=== PATIENT | female | born 1975 | race Caucasian/White ===

== ENCOUNTER 2022-12-31 07:00 | Outpatient (CLI) | payer OTHER, SELFPAY ==
--- NOTE | 2022-12-31 07:15 | MR_ITS ---
[address] [address] Phone:?[phone] Fax:?[phone] Referring Physician Information: Gemini Camp [address] [facility] [address] Phone:?[phone] Fax:?[phone] Patient:?Maida Ngo D.O.B:?1975 Sex:?Female Phone:?[phone] [facility] MRN:?[id number] Exam Date:?12/31/2022 ? EXAM: MRI EXAMINATION OF THE LEFT HIP CLINICAL INFORMATION: Female, 47 years old, with left hip pain. INDICATION: Evaluate for tensor fascia bharath injury. PRIOR SURGERY: None reported. PLAIN FILMS: None available. COMPARISONS: No prior MRIs available. TECHNICAL INFORMATION: Using a 1.5T MR scanner and a localizing surface coil: coronals: PD, T2 sagittals: PD, T2 oblique axials: PD straight axials: PDFS coronals: T1, STIR of pelvis and hips SEDATION: None CONTRAST: None FINDINGS: Hip joint: Physiologic hip effusion. No chondromalacia or focal full-thickness defect of the femoral head or acetabular articular cartilage. No intra-articular bodies. Labrum: Intrasubstance degeneration and partial-thickness tearing of the anterosuperior labrum is present over a length of approximately 1.4 cm (axial PD oblique series 6 images 11-15). No paralabral cyst. Proximal femur: No femoral occult fracture, stress injury, marrow edema or osteonecrosis. Normal femoral head/neck junction offset. No fibrocystic change. No convincing femoral cam morphology. Based on oblique axial series 6 image 14 at approximately 10:30 o'clock anterosuperiorly, the maximum femoral alpha angle measures approximately 50?. Acetabulum: No subchondral cysts, periacetabular ossicles or marrow edema. Version: Decreased cranial acetabular anteversion borders on retroversion. Coverage: Left lateral center edge (CE) angle measures approximately 37? (normal 25?-39?), midline coronal series 4 image 13, corrected for pelvic obliquity. Ligamentum teres: Ligamentum teres is intact and unremarkable. Iliofemoral ligament: The iliofemoral ligament is intact without thickening. Pelvis osseous structures: Sacral ala and sacroiliac joints: No stress/insufficiency fractures or marrow edema/pathology. No demonstrable sacroiliitis. Pubic rami and pubic symphysis: No stress/insufficiency fractures or marrow edema/pathology. Normal alignment without hypertrophy or evidence of ongoing osteitis pubis. Myotendinous structures: Gluteus abductors: Mild gluteus minimus insertional tendinopathy, without tear (axial PDFS series 7 images 15-20). Gluteus medius is unremarkable. Adductors: No demonstrable tendinopathy or strain/tear. Hamstrings: Intact semimembranosus, semitendinosus and biceps femoris tendons, without tendinopathy or tear. Flexors: Mild edema is present along the iliopsoas myotendinous junction, without tendinopathy or muscle/tendon tear (axial PDFS series 7 images 11-17). External rotators: Intact, without demonstrable ischiofemoral impingement. Gluteal aponeurotic fascia and IT band: Unremarkable. Bursae: Mild iliopsoas bursitis with mild greater trochanteric bursal inflammation (axial PDFS series 7 image 17). Intrapelvic contents: Free fluid: No free fluid seen within the pelvis. Pelvic viscera: No discrete intrapelvic mass is identified. Lymph nodes: No lymphadenopathy by MRI size criteria. Neurovascular structures: No discrete cyst, mass or other compression upon the portions visualized of sciatic or femoral nerves. Lumbar spine: The visualized portions of the lower lumbar spine are unremarkable. IMPRESSION: 1. Mild gluteus minimus tendinopathy, without tear, but with mild greater trochanteric bursal inflammation. 2. Mild strain of the iliopsoas myotendinous junction, with mild iliopsoas bursitis. 3. Intrasubstance degeneration and partial-thickness tearing of the anterosuperior labrum measuring 1.4 cm. No paralabral cyst. 4. Borderline cranial acetabular retroversion, with a left hip volume near the upper limits of normal, findings which may predispose to a pincer mechanism of femoroacetabular impingement (MATT). However, there is no femoral cam morphology. 5. No full-thickness chondral defect or evidence of osteoarthritis. 6. No fracture or osseous stress reaction. 7. No other myotendinous abnormality. Specifically, the tensor fascia bharath is normal in appearance. BC Electronically signed on 12/31/2022 11:08:00 AM by Yves Rico M.D.
== END 2022-12-31 07:01 | disposition home or self-care (01) ==
LOC: MRI 07:02
PROVIDERS: Visit Provider Physician Assistant Surgical
DX: M25.552 Pain in left hip (principal); M70.62 Trochanteric bursitis, left hip; S73.102A Unspecified sprain of left hip, initial encounter; M62.89 Other specified disorders of muscle
CPT/HCPCS: 73721